=== PATIENT | male | born 1995 | race African-American/Black ===

== ENCOUNTER 2017-03-20 15:56 | Emergency (ER) | payer SELFPAY ==
[~2017-03-20] VITALS: Ht 162.6 cm; Wt 59.1 kg
[2017-03-20 16:30] VITALS: BP 118/49
== END 2017-03-20 16:49 | disposition home or self-care (01) ==
LOC: EMS 15:58
DX: R55 Syncope and collapse (principal); R56.9 Unspecified convulsions
CPT/HCPCS: 99283